=== PATIENT | female | born 1935 | race Caucasian/White ===

== ENCOUNTER 2017-07-12 09:50 | Outpatient (CLI) | payer OTHER | END 2017-07-12 20:23 | disposition home or self-care (01) | LOC: SRD 09:50 | PROVIDERS: ATTEND Internal Medicine | DX: J98.4 Other disorders of lung (principal); I25.10 Atherosclerotic heart disease of native coronary artery without angina pectoris | CPT/HCPCS: 71020-TC ==

== ENCOUNTER 2018-04-18 10:26 | Outpatient (CLI) | payer OTHER ==
[~2018-04-18 10:26] MED LIST: AMLO5TAB92 PO; ASA81 PO; CAT.1 PO; CIPR-211 PO; DOCU-144 PO; GABA300S PO; IBUP-1969 PO; MAGN400O4 PO; OXYC-130 PO; OXYC-133 PO; PSYL3.4P6 PO
== END 2018-04-18 19:55 | disposition home or self-care (01) ==
LOC: SMI 10:26
PROVIDERS: ATTEND Orthopaedic Surgery
DX: M47.896 Other spondylosis, lumbar region (principal); M48.061 Spinal stenosis, lumbar region without neurogenic claudication
CPT/HCPCS: 72148